=== PATIENT | male | born 1945 | race Caucasian/White ===

== ENCOUNTER 2016-10-25 15:34 | Emergency (ER) | payer OTHER ==
[2016-10-25] MEDS ORDERED: NORMAL SALINE 1000 ML 1,000 ML IV PRN (15:55)
--- NOTE | 2016-10-25 16:02 | ER Document Report ---
ED Allergic Reaction - General Chief Complaint: Allergic Reaction Stated Complaint: ALLERGIC REACTION Time Seen by Provider: 10/25/16 15:47 Notes: The patient is a 71-year-old male, past medical history hypertension, hyperlipidemia, presents by EMS after he had a severe allergic reaction after a bee sting to his right shoulder. He began to have diffuse hives, throat swelling and trouble breathing. When EMS arrived, he had no respiratory sounds and had difficulty breathing. His oxygenation was 62%. He was given 0.6 mg epi IM, 50 mg Benadryl IV and 3 Duonebs. On arrival to the ER, the patient is having no symptoms at this time. He denies difficulty swallowing, tongue swelling, wheezing, shortness of breath, chest pain, nausea, vomiting, rash, headache or fevers. - Related Data Allergies/Adverse Reactions: bee venom protein (honey bee) Allergy (Verified 10/25/16 17:35) Past Medical History - General Information source: Patient - Social History Smoking Status: Unknown if Ever Smoked Family History: Reviewed & Not Pertinent Review of Systems - Review of Systems Notes: REVIEW OF SYSTEMS: CONSTITUTIONAL: -fevers, -chills EENT: -eye pain, -difficulty swallowing, -nasal congestion CARDIOVASCULAR:-chest pain, -syncope. RESPIRATORY: -cough, -SOB GASTROINTESTINAL: -abdominal pain, - nausea, -vomiting, -diarrhea GENITOURINARY: -dysuria, -hematuria MUSCULOSKELETAL: -back pain, -neck pain SKIN: -rash or skin lesions. HEMATOLOGIC: -easy bruising or bleeding. LYMPHATIC: -swollen, enlarged glands. NEUROLOGICAL: -altered mental status or loss of consciousness, -headache, - neurologic symptoms PSYCHIATRIC: -anxiety, -depression. ALL OTHER SYSTEMS REVIEWED AND NEGATIVE. Physical Exam - Vital signs Vitals: Resp Pulse Ox 21 H 96 10/25/16 15:52 10/25/16 15:52 - Notes Notes: PHYSICAL EXAMINATION: GENERAL: Well-appearing, well-nourished and in no acute distress. HEAD: Atraumatic, normocephalic. EYES: Pupils equal round and reactive to light, extraocular movements intact, sclera anicteric, conjunctiva are normal. ENT: nares patent, oropharynx clear without exudates. Moist mucous membranes. NECK: Normal range of motion, supple without lymphadenopathy, no stridor LUNGS: Breath sounds clear to auscultation bilaterally and equal. No wheezes rales or rhonchi. HEART: Regular rate and rhythm without murmurs ABDOMEN: Soft, nontender, normoactive bowel sounds. No guarding, no rebound. No masses appreciated. EXTREMITIES: Normal range of motion, no pitting or edema. No cyanosis. NEUROLOGICAL: Cranial nerves grossly intact. Normal speech, normal gait. Normal sensory and motor exams. PSYCH: Normal mood, normal affect. SKIN: Warm, Dry, normal turgor, no rashes or lesions noted. Course - Re-evaluation Re-evalutation: Patient is having no symptoms at this time. Airway is intact. Will provide steroids and Pepcid to help finish the treatment for anaphylaxis. Due to his severe symptoms, will observe patient in the emergency room for 6 hours after administration of epi for return of symptoms. Also provided instructions to patient about how to use an EpiPen for similar symptoms. He understands that he still must call 911 or return to the ER if he has similar symptoms. 10/25/16 21:30: Pt reevaluated multiple times in the emergency room without any evidence of worsening anaphylaxis. Will discharge patient home with steroids and EpiPen with strict return precautions. - Vital Signs Vital signs: Temp Pulse Resp BP Pulse Ox 97.5 F 25 H 100/57 L 94 10/25/16 16:01 10/25/16 16:01 10/25/16 16:01 10/25/16 16:01 - EKG Interpretation by Me EKG shows normal: Sinus rhythm, [place], Intervals, QRS Complexes Rate: Normal Additional EKG results interpreted by me: No STEMI. ST depressions in inferior leads Discharge - Discharge Clinical Impression: Anaphylaxis due to hymenoptera venom Qualifiers: Encounter type: initial encounter Injury intent: accidental or unintentional Qualified Code(s): T63.481A - Toxic effect of venom of other arthropod, accidental (unintentional), initial encounter Condition: Stable Additional Instructions: Return immediately to the ER or call 911 if you notice any worsening signs or symptoms. Use your EpiPen as we instructed. Continue the full course of steroids. ACUTE ALLERGIC REACTION: Your symptoms are due to an allergic reaction. Allergy can cause hives, swelling of the hands, feet, and face, hoarseness, and difficulty swallowing or breathing. It may be due to exposure to medication, animal dander, foods, infection, or insect bites. Medication is a common cause, even when prior use of this same medication caused no problems. Acute treatment may include adrenalin and antihistamines. Usually, the specific allergic agent can't be identified unless repeated episodes occur. Home treatment includes the following: (1) Stop any suspicious medications. This will be discussed with you. (2) Oral antihistamines for the next four to five days. Example, diphenhydramine (Benadryl) every four hours. (3) You may also use cimetidine (Tagamet), ranitidine (Zantac), or famotidine ( Pepcid) every four hours if diphenhydramine is not controlling itching and hives. (4) Avoid aspirin until the hives completely disappear. (5) Avoid hot baths or showers until the hives are completely gone. Call the doctor if faintness, difficulty swallowing, tightness in the chest , or wheezing occurs. EPINEPHRINE: An injection of epinephrine (also called adrenalin) is used to treat allergic reactions, asthma, and some other medical conditions. It is a stimulant medication that consticts blood vessels, relaxes smooth muscles such as in the bronchioles of the lung, elevates blood pressure, and increases heart rate. It can temporarily make you feel very nervous and shakey, but it's affects last only a short time, about 15 to 30 minutes at most. STEROID MEDICATION INJECTION: You have been given an injection of medicine of the cortisone/steroid class. This medication is used to control inflammation or allergy. It is often continued as a pill for a short period of time, until the acute process subsides. There are usually no side effects from short-term use of cortisone-like medications. Some persons feel an increased sense of well-being and are not sleepy at bedtime. Long-term use of cortisone medications is best avoided, unless required for a severe condition. If your condition does not remit, or relapses after the course of corticosteroid medication, you should consult your physician. STEROID MEDICATION: You have been given a medicine of the cortisone/steroid class. This medication is used to control inflammation or allergy. It is usually only given for a short period of time, until the acute process subsides. There are usually no side effects from short-term use of cortisone-like medications. Some persons feel an increased sense of well-being and are not sleepy at bedtime. Long-term use of cortisone medications is best avoided, unless required for a severe condition. If your condition does not remit, or relapses after the course of corticosteroid medication, you should consult your physician. ANTIHISTAMINES: An antihistamine has been given and/or prescribed to control your symptoms. Antihistamines are used for many reasons, including itching, watering eyes, runny nose, allergic swelling, hives, and insect stings. Antihistamines may cause drowsiness, especially with the first dose. Do not operate machinery or drive while under the effects of the medication. Other common side effects include dry mouth and eyes. In older persons, antihistamines can occasionally cause urinary retention, constipation, and trouble focusing the eyes. Do not combine the medication with alcohol, or with any other medication without talking to your doctor. USE OF DIPHENHYDRAMINE: The use of diphenhydramine (Benadryl) has been recommended to control allergic symptoms. The 25 mg strength is available over- the-counter, as well as the elixir. This antihistamine is used for many symptoms. It's useful for itching, watering eyes and nose, allergic swelling, hives, and insect stings. The medication can be repeated four times daily. Age Elixir (12.5 mg/tsp) 25 mg pill 2-3 yr 1/2 tsp 4-8 yr 1 tsp 9-14 yr 2 tsp one tab adult 1-2 tabs Antihistamines may cause drowsiness, especially with the first dose. Do not operate machinery or drive while under the effects of the medication. Do not combine the medication with alcohol, or with any other medication without talking to your doctor. FOLLOW-UP CARE: If you have been referred to a physician for follow-up care, call the physician s office for an appointment as you were instructed or within the next two days. If you experience worsening or a significant change in your symptoms, notify the physician immediately or return to the Emergency Department at any time for re-evaluation. Prescriptions: Epinephrine [Epipen 2-Won] 0.3 mg IM ONCE PRN #1 ml PRN Reason: Prednisone [Deltasone 20 mg Tablet] 3 tab PO DAILY 4 Days
[2016-10-25] MEDS ORDERED: METHYLPREDNISOLONE INJ 125 MG/2 ML SDV IV ONE (16:11)
[2016-10-25] MEDS ORDERED: FAMOTIDINE INJ/PF 20 MG/2 ML SDV IV ONE (16:11)
--- NOTE | 2016-10-25 19:04 | EKG REPORT ---
SEVERITY:- ABNORMAL ECG - SINUS RHYTHM NONSPECIFIC ST-T CHANGES, DIFFUSE. : Confirmed by: Santos Hampton MD 25-Oct-2016 19:03:27
[2016-10-25 22:06] VITALS: BP 104/57
== END 2016-10-25 22:05 | disposition home or self-care (01) ==
LOC: ER 15:34
DX: T63.441A Toxic effect of venom of bees, accidental (unintentional), initial encounter (principal); L50.9 Urticaria, unspecified; R09.89 Other specified symptoms and signs involving the circulatory and respiratory systems; R06.00 Dyspnea, unspecified; Y92.89 Other specified places as the place of occurrence of the external cause
CPT/HCPCS: 93005; 99283; 96361; 96374; 96375; 93010; J2930; J7030; S0028

== ENCOUNTER 2017-07-16 16:45 | Emergency (ER) | payer MEDICARE, OTHER ==
--- NOTE | 2017-07-16 18:00 | ER Document Report ---
ED Medical Screen (RME) - General Chief Complaint: Chest Pain Stated Complaint: CHEST PAIN Time Seen by Provider: 07/16/17 17:59 Notes: Patient reports substernal chest pain. He states that it is still present. He states that he has had no respiratory symptoms. He had a normal stress test 2 years ago. He also had a normal heart catheterization 8 years ago. TRAVEL OUTSIDE OF THE [place] IN LAST 30 DAYS: No - Related Data Allergies/Adverse Reactions: bee venom protein (honey bee) Allergy (Verified 07/16/17 17:41) Past Medical History - Social History Chew tobacco use (# tins/day): No Frequency of alcohol use: daily beer Drug Abuse: None - Past Medical History Cardiac Medical History: Reports: Hx Hypertension Renal/ Medical History: Denies: Hx Peritoneal Dialysis Physical Exam - Vital signs Vitals: Temp Pulse Resp BP Pulse Ox 98.1 F 73 17 152/73 H 99 07/16/17 16:58 07/16/17 16:58 07/16/17 16:58 07/16/17 16:58 07/16/17 16:58 Course - Vital Signs Vital signs: Temp Pulse Resp BP Pulse Ox 98.1 F 73 17 152/73 H 99 07/16/17 16:58 07/16/17 16:58 07/16/17 16:58 07/16/17 16:58 07/16/17 16:58
--- NOTE | 2017-07-16 18:07 | EKG REPORT ---
SEVERITY:- ABNORMAL ECG - SINUS RHYTHM ABNRM R PROG, CONSIDER ASMI OR LEAD PLACEMENT : Confirmed by: Santos Hampton MD 16-Jul-2017 18:07:05
[2017-07-16 18:09] LABS: ABSOLUTE EOSINOPHILS # (AUTO) 0.2 10^3/uL (0.0-0.6); ABSOLUTE LYMPHOCYTES (AUTO) 1.2 10^3/uL (0.5-4.7); ABSOLUTE NEUT (AUTO) 8.3 10^3/uL (1.7-8.2); BASOPHILS % (AUTO) 0.4 % (0-2); EOSINOPHILS % (AUTO) 2.2 % (0-6); HEMATOCRIT 44.3 % (37.9-51.0); HEMOGLOBIN 15.3 g/dL (13.5-17.0); LYMPHOCYTES % (AUTO) 11.2 % (13-45); MEAN CORPUSCULAR HEMOGLOBIN 31.3 pg (27.0-33.4); MEAN CORPUSCULAR HGB CONC 34.7 g/dL (32.0-36.0); MEAN CORPUSCULAR VOLUME 90 fl (80-97); MONOCYTES % (AUTO) 9.4 % (3-13); PLATELET COUNT 325 10^3/uL (150-450); RED BLOOD COUNT 4.91 10^6/uL (4.35-5.55); RED CELL DISTRIBUTION WIDTH 13.1 % (11.5-14.0); SEGMENTED NEUTROPHILS % (AUTO) 76.8 % (42-78); TOTAL CELLS COUNTED % (AUTO) 100 %; WHITE BLOOD COUNT 10.7 10^3/uL (4.0-10.5)
[2017-07-16 18:29] LABS: ALANINE AMINOTRANSFERASE 36 U/L (21-72); ALBUMIN 4.3 g/dL (3.5-5.0); ALKALINE PHOSPHATASE 56 U/L (38-126); ANION GAP 16 (5-19); ASPARTATE AMINO TRANSFERASE 29 U/L (17-59); BILIRUBIN,DIRECT 0.3 mg/dL (0.0-0.4); BILIRUBIN,TOTAL 0.4 mg/dL (0.2-1.3); BLOOD UREA NITROGEN 25 mg/dL (7-20); CALCIUM 9.6 mg/dL (8.4-10.2); CARBON DIOXIDE 22 mmol/L (22-30); CHLORIDE 106 mmol/L (98-107); GLUCOSE 107 mg/dL (75-110); POTASSIUM 4.2 mmol/L (3.6-5.0); SODIUM 143.6 mmol/L (137-145); TOTAL PROTEIN 7.1 g/dL (6.3-8.2)
--- NOTE | 2017-07-16 20:01 | ER Document Report ---
ED General - General Chief Complaint: Chest Pain Stated Complaint: CHEST PAIN Time Seen by Provider: 07/16/17 17:59 TRAVEL OUTSIDE OF THE [place] IN LAST 30 DAYS: No - HPI Notes: Patient is a 72-year-old male with a history of hypertension and hypercholesterolemia who presents to the ED complaining of intermittent chest pain that began at 1400 today. Patient states that the pain does not radiate and feels like a pressure at times. Patient states that he was has been able to ambulate and perform stairs without any worsening symptoms or development of shortness of breath. Patient states that he has been eating and drinking without difficulties. He has been urinating normally and having normal bowel movements. He denies any significant cardiopulmonary medical history. Patient is a former smoker. Patient does report his father passing due to an [place] at the age of 63. He denies any drug allergies or IV drug use. He denies any other significant past medical history. Patient states that he currently is asymptomatic and has no chest pain. Patient states that he does have nitro at home, but has not taken any. Patient states his last stress test was 2 years ago and last cardiac catheterization was 3 years ago and was negative. Patient is already stating that he does not want to stay overnight. Denies any headache , fever, neck pain, URI, sore throat, palpitations, syncope, cough, shortness of breath, wheeze, dyspnea, abdominal pain, nausea/vomiting/diarrhea, urinary retention, dysuria, hematuria, back pain, loss of control of bowel or bladder, numbness/tingling, muscle paralysis/weakness, or rash. - Related Data Allergies/Adverse Reactions: bee venom protein (honey bee) Allergy (Verified 07/16/17 17:41) Past Medical History - Social History Smoking Status: Never Smoker Chew tobacco use (# tins/day): No Frequency of alcohol use: daily beer Drug Abuse: None Family History: Reviewed & Not Pertinent Patient has suicidal ideation: No Patient has homicidal ideation: No - Past Medical History Cardiac Medical History: Reports: Hx Hypertension Renal/ Medical History: Denies: Hx Peritoneal Dialysis Review of Systems - Review of Systems -: Yes All other systems reviewed and negative Physical Exam - Vital signs Vitals: Temp Pulse Resp BP Pulse Ox 98.1 F 73 17 152/73 H 99 07/16/17 16:58 07/16/17 16:58 07/16/17 16:58 07/16/17 16:58 07/16/17 16:58 - Notes Notes: PHYSICAL EXAMINATION: GENERAL: Well-appearing, well-nourished and in no acute distress. A&Ox4. Answers questions appropriately. HEAD: Atraumatic, normocephalic. EYES: Pupils equal round and reactive to light, extraocular movements intact, sclera anicteric, conjunctiva are normal. ENT: Nares patent and without discharge. oropharynx clear without exudates. No tonsilar hypertrophy or erythema. Moist mucous membranes. No sinus tenderness. NECK: Normal range of motion, supple without lymphadenopathy LUNGS: Breath sounds clear to auscultation bilaterally and equal. No wheezes rales or rhonchi. HEART: Regular rate and rhythm without murmurs, rubs, gallops. ABDOMEN: Soft, nontender, nondistended abdomen. No guarding, no rebound. No masses appreciated. Normal bowel sounds present. No CVA tenderness bilaterally. Musculoskeletal: FROM to passive/active. Strength 5+/5. Extremities: No cyanosis, clubbing, or edema b/l. Peripheral pulses 2+. Capillary refill less than 3 seconds. NEUROLOGICAL: Normal speech, normal gait. Normal sensory, motor exams PSYCH: Normal mood, normal affect. SKIN: Warm, Dry, normal turgor, no rashes or lesions noted. Course - Re-evaluation Re-evalutation: 07/16/17 22:11 Patient is a 72-year-old male who presents the ED with chest pain unspecified. Vitals are acceptable. PE is otherwise unremarkable. CBC, CMP, cardiac enzymes 2/EKG, BNP, chest x-ray were unremarkable for any acute pathology. Patient states that he has not had any pain since his arrival. Patient states that he wants to go home and does not want to stay in the hospital. Patient has a heart score of 4. Patient has noted that even with the pain he was able to do stairs and walk without any worsening symptoms or shortness of breath/ dyspnea on exertion. I did thoroughly review the risk and benefit of discharge to home versus observation and staying in the hospital. Advised patient that ultimately he could go home, have a heart attack, and . Patient states that he has no pain and has not had any pain since arrival and he does not want to stay. Patient verbalized understanding that he could go home and . Patient states that if anything gets worse he will return to the emergency department. Otherwise, he states that he will call his primary care doctor tomorrow for an evaluation. Advised patient that he may need outpatient stress testing if he does not stay. I will also provide him with information for a tapper operator that he may call tomorrow as well. I again recommended patient to stay in the emergency department, but patient verbally declined. Patient is in full understanding of the risk and benefit of his decision at this time. Low suspicion for any pneumothorax, pericarditis, dissection, respiratory compromise , severe dehydration, sepsis, meningitis at this time. Patient is aware that his condition can change from initial presentation and he needs to monitor symptoms closely and seek medical attention for any acute changes. Recommend conservative measures for symptoms. Recheck with your PCM/cardiology tomorrow. Return to the ED with any worsening/concerning symptoms otherwise as reviewed in discharge. Patient is in agreement. - Vital Signs Vital signs: Temp Pulse Resp BP Pulse Ox 98.1 F 73 19 152/73 H 99 07/16/17 16:58 07/16/17 16:58 07/16/17 19:24 07/16/17 16:58 07/16/17 16:58 - Laboratory Result Diagrams: 07/16/17 17:50 07/16/17 17:50 Laboratory results interpreted by me: 07/16/17 07/16/17 17:50 17:50 WBC 10.7 H Lymphocytes % 11.2 L Absolute Neutrophils 8.3 H BUN 25 H Creatinine 1.33 H Est GFR (Non-Af Amer) 53 L Discharge - Discharge Clinical Impression: Chest pain Qualifiers: Chest pain type: unspecified Qualified Code(s): R07.9 - Chest pain, unspecified Condition: Stable Disposition: HOME, SELF-CARE Instructions: Chest Pain of Unclear Cause ([facility]) Additional Instructions: You have opted for discharge and you do not want to stay in the hospital for further testing. As reviewed, things can get worse and you could as we cannot completely rule out a heart/lung problem. You have verbalized understanding of your decision to us at this time. Maintain adequate fluid and food intake Take home medications as directed Low sodium/fat diet Exercise regularly Weight control May use nitro that you have at home for any recurrence of symptoms Monitor blood pressure daily and keep a log Monitor symptoms for any acute changes Recheck with your PCM tomorrow Schedule a follow-up with cardiology Return to the ED with any worsening symptoms and/or development of fever, headache, return of chest pain, palpitations, syncope, shortness of breath, trouble breathing, abdominal pain, n/v/d, blood in stool/urine, loss of control of bowel/bladder, urinary retention, muscle weakness/paralysis, numbness/ tingling, or other worsening symptoms that are concerning to you. Forms: Elevated Blood Pressure Referrals: ERON FOWLER MD [ACTIVE STAFF] - Follow up as needed [facility] [Other] - Follow up tomorrow
[2017-07-16] MEDS ORDERED: OXYCODONE HCL IR 5 MG TABLET PO ONE (20:05)
--- NOTE | 2017-07-16 20:21 | RADIOLOGY REPORT (SQ) ---
EXAM DESCRIPTION: CHEST SINGLE VIEW COMPLETED DATE/TIME: 07/16/2017 7:29 pm REASON FOR STUDY: chest pain COMPARISON: 2007. NUMBER OF VIEWS: One view. TECHNIQUE: Single frontal radiographic view of the chest acquired. LIMITATIONS: None. FINDINGS: LUNGS AND PLEURA: No opacities, masses or pneumothorax. No pleural effusion. MEDIASTINUM AND HILAR STRUCTURES: No masses. Contour normal. HEART AND VASCULAR STRUCTURES: Heart normal in size. Normal vasculature. BONES: No acute findings. HARDWARE: None in the chest. OTHER: No other significant finding. IMPRESSION: NO SIGNIFICANT RADIOGRAPHIC FINDING IN THE CHEST. TECHNICAL DOCUMENTATION: JOB ID: [id number] [employer]- All Rights Reserved Reading location - IP/workstation name: [email or web address]
[2017-07-16 20:40] LABS: NT PRO BNP 112 pg/mL (5-900)
[2017-07-16 20:45] LABS: TROPONIN I < 0.012 ng/mL
[2017-07-16 22:22] VITALS: BP 137/79
== END 2017-07-16 22:29 | disposition home or self-care (01) ==
LOC: ER 16:45
DX: R07.89 Other chest pain (principal); I10 Essential (primary) hypertension; Z82.49 Family history of ischemic heart disease and other diseases of the circulatory system; Z91.030 Bee allergy status
CPT/HCPCS: 36415; 71045; 80053; 83880; 84484; 85025; 93005; 93010; 99285

== ENCOUNTER 2017-08-20 10:48 | Emergency (ER) | payer OTHER ==
[2017-08-20 11:01] VITALS: BP 161/76
[2017-08-20] MEDS ORDERED: BACITRACIN ZINC OINTMENT 15 GM TP ONE (11:47)
[2017-08-20] MEDS ORDERED: CEPHALEXIN 500 MG CAPSULE PO ONE (11:47)
[2017-08-20] MEDS ORDERED: DIPH/PERTUSS(ACELL)/TETANUS VAC/PF 0.5 ML SYR (>=10YO) IM ONE (11:47)
--- NOTE | 2017-08-20 11:52 | ER Document Report ---
ED General - General Chief Complaint: Laceration Stated Complaint: LEG INJURY Time Seen by Provider: 08/20/17 11:44 Notes: Chief complaint: Bilateral lower leg wound History of complain:( obtained from----patient) 72 years old male who accidentally sustained a laceration over the midportion of the anterior part of the lower leg by a car door. It happened more than 24 hours ago. Since the wound in the right side looked deeper he came to the ED. No other symptoms. Onset: As above Duration: Sudden Severity: Mild to moderate Quality: Sharp Context: As above Exacerbating factor and relieving factors: Walking REVIEW OF SYSTEMS: CONSTITUTIONAL : Denies fever, chills, or sweats. Denies recent illness. EENT: Denies eye, ear, throat, or mouth pain or symptoms. Denies nasal or sinus congestion or discharge. Denies throat, tongue, or mouth swelling or difficulty swallowing. CARDIOVASCULAR: Denies chest pain. Denies palpitations or racing or irregular heart beat. Denies ankle edema. RESPIRATORY: Denies cough, cold, or chest congestion. Denies shortness of breath, difficulty breathing, or wheezing. GASTROINTESTINAL: Denies distention. Denies nausea, vomiting, or diarrhea. Denies blood in vomitus, stools, or per rectum. Denies black, tarry stools. Denies constipation. GENITOURINARY: Denies difficulty urinating, painful urination, burning, frequency, blood in urine, or discharge. FEMALE GENITOURINARY: Denies vaginal bleeding, heavy or abnormal periods, irregular periods. Denies vaginal discharge or odor. MUSCULOSKELETAL: Denies back or neck pain or stiffness. Denies joint pain or swelling. SKIN: Denies rash, lesions or sores. HEMATOLOGIC : Denies easy bruising or bleeding. LYMPHATIC: Denies swollen, enlarged glands. NEUROLOGICAL: Denies confusion or altered mental status. Denies passing out or loss of consciousness. Denies dizziness or lightheadedness. Denies headache. Denies weakness or paralysis or loss of use of either side. Denies problems with gait or speech. Denies sensory loss, numbness, or tingling. Denies seizures. PSYCHIATRIC: Denies anxiety or stress. Denies depression, suicidal ideation, or homicidal ideation. ALL OTHER SYSTEMS REVIEWED AND NEGATIVE. PHYSICAL EXAMINATION: GENERAL: Well-appearing, well-nourished and in no acute distress. HEAD: Atraumatic, normocephalic. EYES: Pupils equal round and reactive to light, extraocular movements intact, conjunctiva are normal. ENT: Nares patent, oropharynx clear without exudates. Moist mucous membranes. NECK: Normal range of motion, supple without lymphadenopathy LUNGS: Breath sounds clear to auscultation bilaterally and equal. No wheezes rales or rhonchi. HEART: Regular rate and rhythm without murmurs ABDOMEN: Soft, nontender, nondistended abdomen. No guarding, no rebound. No masses appreciated. Examination of genitals-deferred Musculoskeletal: Normal range of motion, no pitting or edema. No cyanosis. NEUROLOGICAL: Cranial nerves grossly intact. Normal speech, normal gait. Normal sensory, motor exams PSYCH: Normal mood, normal affect. SKIN: Skin over the midportion of the lower leg anteriorly on the right leg has a deeper laceration which is about 4 cm, with granulation tissue formation. Left lower leg minor abrasion over the midportion of the leg. Neurovascular function distally was within normal limits Dictation was performed using [employer] voice recognition software TRAVEL OUTSIDE OF THE [place] IN LAST 30 DAYS: No - HPI Notes: Appear to be dehydrated - Related Data Allergies/Adverse Reactions: bee venom protein (honey bee) Allergy (Verified 08/20/17 10:55) Past Medical History - Social History Smoking Status: Unknown if Ever Smoked Chew tobacco use (# tins/day): No Frequency of alcohol use: Social Drug Abuse: None Family History: Reviewed & Not Pertinent Patient has suicidal ideation: No Patient has homicidal ideation: No - Past Medical History Cardiac Medical History: Reports: Hx Hypertension Renal/ Medical History: Denies: Hx Peritoneal Dialysis Review of Systems - Review of Systems Notes: Appear to be dehydrated Physical Exam - Vital signs Vitals: Temp Pulse Resp BP Pulse Ox 98.1 F 64 16 161/76 H 99 08/20/17 10:59 08/20/17 10:59 08/20/17 10:59 08/20/17 10:59 08/20/17 10:59 - Notes Notes: Appear to be dehydrated Course - Re-evaluation Re-evalutation: 08/20/17 11:50 Wound was cleaned and dressed with antibiotic ointment. Since the wound is more than 24 hours sutures could not be performed. - Vital Signs Vital signs: Temp Pulse Resp BP Pulse Ox 98.1 F 64 16 161/76 H 99 08/20/17 10:59 08/20/17 10:59 08/20/17 10:59 08/20/17 10:59 08/20/17 10:59 Discharge - Discharge Clinical Impression: Abrasion, left lower leg, initial encounter Laceration of right lower leg Qualifiers: Encounter type: initial encounter Qualified Code(s): S81.811A - Laceration without foreign body, right lower leg, initial encounter Condition: Fair Disposition: HOME, SELF-CARE Instructions: Antibiotic Ointment Protection ([facility]), Laceration Care ([facility]) Prescriptions: Bacitracin 1 applic TP DAILY PRN #1 pkg PRN Reason: Cephalexin [Keflex] 500 mg PO TID #30 capsule
== END 2017-08-20 12:25 | disposition home or self-care (01) ==
LOC: ER 10:48
DX: S81.811A Laceration without foreign body, right lower leg, initial encounter (principal); S80.812A Abrasion, left lower leg, initial encounter; X58.XXXA Exposure to other specified factors, initial encounter; Z23 Encounter for immunization; I10 Essential (primary) hypertension
CPT/HCPCS: 99282; 90471; 90715; J3490

== ENCOUNTER 2019-03-22 12:57 | Emergency (ER) | payer OTHER ==
[2019-03-22 13:14] VITALS: BP 150/75
--- NOTE | 2019-03-22 13:20 | EKG REPORT ---
SEVERITY:- OTHERWISE NORMAL ECG - SINUS RHYTHM VENTRICULAR PREMATURE COMPLEX MINIMAL ST DEPRESSION, LATERAL LEADS : Confirmed by: Santos Hampton MD 22-Mar-2019 13:20:13
--- NOTE | 2019-03-22 14:38 | ER Document Report ---
ED Medical Screen (RME) - General Chief Complaint: Chest Pain Stated Complaint: CHEST PAIN Time Seen by Provider: 03/22/19 14:33 Mode of Arrival: Ambulatory Information source: Patient Notes: 73-year-old male presents with possible history of SVT presents to the emergency department with reports that his heart has been racing and skipping beats. He reports when his heart skips a beat he feels short of breath and lightheaded. Denies fever vomiting diarrhea. Is taking medication for high blood pressure. I have greeted and performed a rapid initial assessment of this patient. A comprehensive ED assessment and evaluation of the patient, analysis of test results and completion of the medical decision making process will be conducted by additional ED providers. TRAVEL OUTSIDE OF THE [place] IN LAST 30 DAYS: No - Related Data Allergies/Adverse Reactions: bee venom protein (honey bee) Allergy (Verified 03/22/19 14:32) Past Medical History - Past Medical History Cardiac Medical History: Reports: Hx Hypertension Renal/ Medical History: Denies: Hx Peritoneal Dialysis Physical Exam - Vital signs Vitals: Temp Pulse Resp BP Pulse Ox 98.2 F 67 16 150/75 H 99 03/22/19 13:13 03/22/19 13:13 03/22/19 13:13 03/22/19 13:13 03/22/19 13:13 Course - Vital Signs Vital signs: Temp Pulse Resp BP Pulse Ox 98.2 F 67 16 150/75 H 99 03/22/19 13:13 03/22/19 13:13 03/22/19 13:13 03/22/19 13:13 03/22/19 13:13
[2019-03-22 14:56] LABS: ABSOLUTE EOSINOPHILS # (AUTO) 0.2 10^3/uL (0.0-0.6); ABSOLUTE LYMPHOCYTES (AUTO) 1.2 10^3/uL (0.5-4.7); ABSOLUTE MONOCYTES (AUTO) 0.9 10^3/uL (0.1-1.4); ABSOLUTE NEUT (AUTO) 7.7 10^3/uL (1.7-8.2); BASOPHILS % (AUTO) 0.4 % (0-2); HEMOGLOBIN 15.4 g/dL (13.5-17.0); LYMPHOCYTES % (AUTO) 12.1 % (13-45); MEAN CORPUSCULAR HEMOGLOBIN 32.4 pg (27.0-33.4); MEAN CORPUSCULAR HGB CONC 34.3 g/dL (32.0-36.0); MEAN CORPUSCULAR VOLUME 94 fl (80-97); PLATELET COUNT 354 10^3/uL (150-450); RED BLOOD COUNT 4.77 10^6/uL (4.35-5.55); RED CELL DISTRIBUTION WIDTH 13.1 % (11.5-14.0); SEGMENTED NEUTROPHILS % (AUTO) 76.5 % (42-78); TOTAL CELLS COUNTED % (AUTO) 100 %; WHITE BLOOD COUNT 10.1 10^3/uL (4.0-10.5)
[2019-03-22 15:15] LABS: ALBUMIN 4.7 g/dL (3.5-5.0); ALKALINE PHOSPHATASE 55 U/L (38-126); ANION GAP 13 (5-19); ASPARTATE AMINO TRANSFERASE 27 U/L (17-59); BILIRUBIN,DIRECT 0.2 mg/dL (0.0-0.4); BILIRUBIN,TOTAL 0.6 mg/dL (0.2-1.3); BLOOD UREA NITROGEN 26 mg/dL (7-20); CALCIUM 10.5 mg/dL (8.4-10.2); CARBON DIOXIDE 24 mmol/L (22-30); CHLORIDE 104 mmol/L (98-107); GLUCOSE 101 mg/dL (75-110); TOTAL PROTEIN 7.7 g/dL (6.3-8.2)
--- NOTE | 2019-03-22 15:22 | RADIOLOGY REPORT (SQ) ---
EXAM DESCRIPTION: CHEST 2 VIEWS COMPLETED DATE/TIME: 03/22/2019 2:55 pm REASON FOR STUDY: sob heart palpitations COMPARISON: 07/16/2017. EXAM PARAMETERS: NUMBER OF VIEWS: two views TECHNIQUE: Digital Frontal and Lateral radiographic views of the chest acquired. RADIATION DOSE: NA LIMITATIONS: none FINDINGS: LUNGS AND PLEURA: No opacities, masses or pneumothorax. No pleural effusion. MEDIASTINUM AND HILAR STRUCTURES: No masses or contour abnormalities. HEART AND VASCULAR STRUCTURES: Heart normal size. No evidence for failure. BONES: No acute findings. Degenerative changes in the spine. HARDWARE: None in the chest. OTHER: No other significant finding. IMPRESSION: NO ACUTE RADIOGRAPHIC FINDING IN THE CHEST. TECHNICAL DOCUMENTATION: JOB ID: [id number] [employer]- All Rights Reserved Reading location - IP/workstation name: [email or web address]
== END 2019-03-22 19:57 | disposition left against medical advice (07) ==
LOC: ER 12:57
DX: R09.89 Other specified symptoms and signs involving the circulatory and respiratory systems (principal); R06.02 Shortness of breath; R42 Dizziness and giddiness; I10 Essential (primary) hypertension; Z79.899 Other long term (current) drug therapy; Z91.030 Bee allergy status; Z53.20 Procedure and treatment not carried out because of patient's decision for unspecified reasons
CPT/HCPCS: 36415; 71046; 80053; 84484; 85025; 93005; 93010; 99281; 99285